=== PATIENT | female | born 1980 | race Caucasian/White ===

== ENCOUNTER 2016-09-12 16:15 | Emergency (ER) | payer MEDICAID ==
[~2016-09-12] VITALS: Ht 157.5 cm; Wt 71.2 kg
[~2016-09-12 16:15] MED LIST: CYMBALTA30 MG PO; DICLOFENAC 50MG50 MG PO; FLEXERIL10 MG PO; KEFLEX 500MG.500 MG PO; LODINE400 MG PO; NAPROXEN1 POW; NAPROXEN250 MG PO; NICODERM C21 MG/24 H TD; NOMEDS XX; PHENERGAN12.5 M3 PO; TYLENOL WITH CO1 TA1 PO; ZOFRAN4 MG PO
[2016-09-12] MEDS ORDERED: MOBIC15 MG PO (16:38)
[2016-09-12] MEDS ORDERED: LAMICTAL 100 M100 MG PO (16:38)
[2016-09-12] MEDS ORDERED: ZANAFLEX4 MG NG (16:38)
[2016-09-12] MEDS ORDERED: CYMBALTA60 M1 PO (16:39)
[2016-09-12] MEDS ORDERED: BUSPAR 10MG TAB10 MG PO (16:39)
[2016-09-12] MEDS ORDERED: MEDROL 4MG. DOSE4 MG PO (17:41)
--- NOTE | 2016-09-12 17:42 | Urgent Treatment Center Report ---
History of Present Issue Date/Time Seen by Provider 09/12/16 1700 Visit Reason Pt arrived:Walked Presenting Problem:PATIENT STATES HER RIGHT EAR HAS RICCARDO BOTHERING HER FOR 1 WEEK. PAIN AND STOPPED UP. SHE STATES SHE HAS SINUS DRAINAGE EARLY IN THE AM. BODY ACHES. Location if Accident: Onset of symptoms date/time:/ or onset unknown for:MEDICAL HX UNKNOWN Have you (or family members/close friends) recently traveled outside the [place]? N If Yes, where/when: Have you had exposure to infectious disease within the past month? TB? Other? Specify: c/o decreased hearing right ear x 2-3 weeks, rhinorrhea x 2-3 days, mild cough. URI 3-4 weeks ago "that I thought resolved". All symptoms worse in AM. Right ear pain barely, 2/10. Aching. Hasn't taken or tried anything for symptoms. No known sick contacts. Denies ear drainage, dizziness, headache. Source patient Exam Limitations no limitations ALLERGIES Coded Allergies: gabapentin (From NEURONTIN) (Mild, 03/03/16) bupropion (From WELLBUTRIN) (03/03/16) oxcarbazepine (From TRILEPTAL) (03/03/16) Home Medications Active Scripts ACETAMINOPHEN WITH CODEINE (Tylenol With Codeine #3 Tablet) 1 TAB PO Q4HP PRN pain #20 TAB Prov: 11/27/15 DICLOFENAC SODIUM (Diclofenac 50MG) 50 MG PO BID #60 TAB Prov: 11/27/15 Nicotine (Nicoderm Cq) 21 MG TD DAILY #30 PATCH Prov: 11/29/15 ONDANSETRON HCL (Zofran 4MG Tab) 4 MG PO Q8HP PRN NAUSEA AND VOMITING #20 TAB Prov: 11/29/15 CEPHALEXIN (Keflex 500MG Capsule) 500 MG PO BID 10 Days Ref 5 Prov: 12/10/15 Nicotine (Nicoderm Cq) 21 MG TD DAILY 30 Days Prov: 12/10/15 Reported Medications Naproxen (Naproxen 250MG Tablet) 250 MG PO PRN PRN NEEDED INFLAMMATION/PAIN DULOXETINE HCL (Cymbalta 30MG) 30 MG PO DAILY Lamotrigine (Lamictal 100Mg) 100 MG PO BID Meloxicam (Mobic 15MG) 15 MG PO BID TIZANIDINE HCL (Zanaflex) 4 MG NG Q8 Buspirone Hcl (Buspar 10MG) 10 MG PO DAILY DULOXETINE HCL (Cymbalta) 60 MG PO DAILY History Medical History General CAD? No Angina: No AL: No Hypertension? No Hyperlipidemia? No CHF? No DVT? No PE? No COPD? No Asthma? No Anemia? No GERD? No Gastric ulcers? No GI Bleed? No Hernia? No Thyroid Problems? No Hypothyroidism? No CVA? No Seizures? No Diabetes? No Renal Insuffiency? No UTI? No Stones? No GB Disease: No Nephritic Syndrome? No Asplenia? No Hepatitis? No Sickle Cell Disease? No Arthritis? No Migraines? No Cataracts? No Glaucoma? No MRSA? No HIV? No TB? No Anxiety? Yes Depression? No Cancer? No More? 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 Respiratory see HPI, denies shortness of breath, denies wheezing Cardiovascular denies no symptoms reported Skin denies rash Psychiatric/Neurological denies headache Physical Exam Vital Signs Vital Signs Date Time Temp Pulse Resp B/P Pulse O2 O2 Flow FiO2 Ox Delivery Rate 09/12 1634 98.7 89 18 120/80 98 General Appearance normal appearance, no apparent distress Eye Exam - bilateral eye normal exam Ear, Nose, Throat normal pharynx, normal EACs, normal left TM, right TM bulging, pearly duke, good light reflex, tender, clear fluid Neck supple, full range of motion, tender right side consistent w/ area of eustachian tube Respiratory Status No: respiratory distress. Lung Sounds anterior: lungs clear. posterior: lungs clear. bilateral: lungs clear. Cardiovascular regular rate/rhythm, no murmur Neurologic alert Skin normal color, warm/dry Lymphatic no adenopathy (cervical) Medical Decision Making LABS/Meds/Orders Pt receiving controlled substance in ED? No Departure Departure Time of Disposition 1738 Disposition DC Home or Self Care(routine) Clinical Impression Primary Impression: Acute serous otitis media, right ear Qualifiers: Recurrence: not specified as recurrent Qualified Code: H65.01 - Acute serous otitis media, right ear Condition STABLE Referrals Cynthia HURT,Scot Duggan (Family) Immediately for new or worsening symptoms or no noticeable improvement with steroids Patient Instructions DI for Eustachian Tube Dysfunction-Adult Additional Instructions Sleep elevated Reviewed side effects of steroids. Pt reports she is aware and has taken them before without difficulty or adverse reaction Discharge Counseling Counseled pt/family regarding diagnosis, test results, medications/RX, home care, follow up needs Prescriptions Current Visit Scripts Methylprednisolone (Medrol Dose Nikolay) 4 MG PO UD #1 NIKOLAY TAKE DIRECTED ON PACKAGING at 8819
[2016-09-12 17:51] VITALS: BP 120/80
[2016-10-03] MEDS ORDERED: ZOFRAN4 MG PO (14:22)
== END 2016-09-12 17:51 | disposition home or self-care (01) ==
LOC: UTC 16:15
DX: H65.01 Acute serous otitis media, right ear (principal); Z72.0 Tobacco use

== ENCOUNTER 2017-05-15 20:25 | Emergency (ER) | payer MEDICAID ==
[~2017-05-15] VITALS: Ht 157.5 cm; Wt 66.8 kg
[~2017-05-15 20:25] MED LIST changes: +BUSPAR 10MG TAB10 MG PO; +CYMBALTA60 M1 PO; +LAMICTAL 100 M100 MG PO; +MEDROL 4MG. DOSE4 MG PO; +MOBIC15 MG PO; +TRIAMCINOLON TP; +ZANAFLEX4 MG NG; +ZITHROMAX Z-PA250 M2 PO
--- OUTSIDE RECORDS SUMMARY | 2017-05-15 20:54 | External Medical Summary Rpt | CCD ---
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 LTY STDY 6 [facility] ANTIMICRB INC INC IAL MICRO/AGA R DILUTJ RADIOLOGI 52856 [place] C 6 MEDICAL EXAMINATI IMAGING ON CHEST ASS SINGLE VIEW FRONTAL PPSV23 75609 R[facility] JACKSON VACCINE 2 6 [facility] YRS OR INC INC OLDER FOR SUBQ/IM USE HOSPITAL G0378 [facility] JACKSON OBSERVATI 6 [facility] ON INC INC SERVICE PER HOUR LOCM Q9967 R[facility] JACKSON [phone] 6 [facility] MG/ML INC INC IODINE CONCENTRA TION PER ML OBSERVATI 68055 [facility] FRYMAN ON CARE 6 PHYSICIAN EUG DISCHARGE S GROUP MANAGEMEN T INJECTION J2405 [facility] JACKSON 6 [facility] ONDANSETR INC INC ON HCL PER 1 MG INJECTION J2405 [facility] JACKSON 6 [facility] ONDANSETR INC INC ON HCL PER 1 [facility] G0378 [facility] JACKSON OBSERVATI 6 [facility] ON INC INC SERVICE PER HOUR COMPREHEN 49205 R[facility] JACKSON SIVE 6 [facility] METABOLIC INC INC PANEL INITIAL 87738 [facility] MAEVE OBSERVATI 6 PHYSICIAN LOU ON S GROUP CARE/DAY [address] [place] [address] [facility]DA ALL ABDOMEN & 6 MEDICAL PELVIS IMAGING W/CONTRAS ASS T MATERIAL RADEX ABD 52859 [place] VYINEKE COMPL 6 MEDICAL AQT ABD IMAGING W/S/E/D ASS VIEWS 1 VIEW BLOOD 56016 [facility] JACKSON COUNT 6 [facility] COMPLETE INC INC AUTO&AUTO DIFRNTL WBC THERAPEUT 12154 R[facility] JACKSON IC 6 [facility] INJECTION INC [place] [address] RENETTA JACKSON MAGNESIUM 6 [place] [address] RENETTA JACKSON LIPASE 6 [facility] INC INC RADEX 61697 MARISA BANDA ALL SHOULDER 6 MEDICAL 1 VIEW IMAGING ASS ECG 09523 RENETTA BEE JR ROUTINE 6 [facility] W/LEAST P 12 LDS I&R ONLY SHOULDER L3650 [facility] ORTHOSIS 6 TECHNOLOG TECHNOLOG FIG 8 IES INC IES INC ABDUCT RESTRAINE R PREFAB COMPUTER- 46234 [place] JORGE ALBERTO AIDED 6 MEDICAL ANDRES DETECTION IMAGING ASS SCREENING MAMMOGRAP HY SCREENING G0202 [place] JORGE ALBERTO 6 MEDICAL ANDRES MAMMOGRAP IMAGING HY RENE ASS INCL CAD WHEN PERFORMD COMPREHEN 32068 R[facility]TA JACKSON SIVE 6 [facility] [address] RENETTA RENETTA FREE 6 [facility] [place] [address] RENETTA JACKSON THYROID 6 [facility] STIMULATI INC INC NG HORMONE TSH 25 54960 R[facility]TA JACKSON HYDROXY 6 [facility] INCLUDES INC INC FRACTIONS IF PERFORMED LIPID 17033 RENETTA JACKSON PANEL 6 [facility] INC INC BLOOD 69799 RENETTA JACKSON COUNT 6 [facility] COMPLETE INC INC AUTO&AUTO DIFRNTL WBC RADEX 76053 [place] ALL SPINE 6 MEDICAL CERVICAL IMAGING 2 OR 3 ASS VIEWS RADEX 90074 [place] ALL SPINE 6 MEDICAL THORACIC IMAGING 2 VIEWS ASS RADEX 15230 [place] ALL SPINE 6 MEDICAL LUMBOSACR IMAGING AL 2/3 [place] [address] PATHOLOGY PATHOLOGY SURG 8 & & PATHOLOGY CYTOLOGY CYTOLOGY LAB LAB GROSS&LOU ROSCOPIC EXAM COLPOSCOP 72689 WOMENS EITAN, Y CERVIX 8 [facility] ENDOCRV CURRETAGE LAPAROSCO 43641 LATTER-DAY LATTER-DAY PY W/PLMT 8 PHYS SURG PHYS SURG CTR CTR OCCLUSION DEVICE OVIDUCTS ANES IPER 43975 [facility] HICKEY, LWR ABD 8 [place] JUAN MANUEL A W/LAPS ANESTHESI TUBAL A PSC LIGATION/ TRANSECT CYTP 45928 PATHOLOGY PATHOLOGY CERVICAL/ 8 & & VAGINAL CYTOLOGY CYTOLOGY REQ LAB LAB INTERP PHYSICIAN CYTP C/V 57268 PATHOLOGY PATHOLOGY AUTO THIN 8 & & LYR CYTOLOGY CYTOLOGY PREPJ SCR LAB LAB MNL RESCR PHYS GONADOTRO 13003 [facility] PIN 8 [facility] QUANTITAT LASHAUN BLOOD 61418 [facility] COUNT 8 LATTER-DAY LATTER-DAY COMPLETE HOSP HOSP AUTOMATED COLLECTIO 01070 [facility] N VENOUS 8 LATTER-DAY LATTER-DAY BLOOD HOSP HOSP VENIPUNCT URE INITIAL 42249 [facility] Y Y ON HOSPITAL HOSPITAL CARE/DAY 30 MINUTES URNLS DIP 03205 [facility] 8 Y Y STICK/TAB HOSPITAL HOSPITAL LET RGNT AUTO W/O MICROSCOP Y BLOOD 82543 [facility] COUNT [address] [place] [address] [place] GI[place], HEAD/BRAI 8 MEDICAL SERENITY A N W/O SERV CONTRAST FOUNDATIO MATERIAL NONINVASI 61101 [facility] VE 8 Y Y EAR/PULSE [facility] OXIMETRY SINGLE DETER BASIC 58367 [facility] METABOLIC [address] [facility] CALCIUM TOTAL COLLECTIO 03000 [facility] N VENOUS 8 Y Y BLOOD HOSPITAL HOSPITAL VENIPUNCT URE OTHER 7309 [facility] ARTIFICIA 8 LATTER-DAY LATTER-DAY L RUPTURE HOSP [facility] OTHER 7359 C[facility] MANUALLY 8 LATTER-DAY LATTER-DAY ASSISTED HOSP HOSP DELIVERY NEURAXIAL 85129 LATTER-DAY NITHYA, LABOR 8 ANESTHESI ONIEL ANALG/ANE A PSC A S PLND VAGINAL DELIVERY 86498 [facility] NONSTRESS 8 LATTER-DAY LATTER-DAY TEST HOSP HOSP URNLS DIP 10933 [facility] 8 LATTER-DAY LATTER-DAY STICK/TAB HOSP HOSP LET REAGENT AUTO MICROSCOP Y IADNA 58657 MEDICAL MEDICAL STREPTOCO 8 DIAGNOSTI DIAGNOSTI CCUS [facility] LAB [facility] C LAB LLC [place] [address] [facility] INFLUENZA 8 LATTER-DAY LATTER-DAY A/B EACH HOSP HOSP IAADIADOO 61791 [facility] 8 LATTER-DAY LATTER-DAY STREPTOCO HOSP HOSP CCUS GROUP A CUL 77906 [facility] PRSMPTV 8 LATTER-DAY LATTER-DAY PTHGNC HOSP HOSP ORGANISM SCRN W/COLONY ESTIMJ BLOOD 85317 [facility] COUNT 8 LATTER-DAY LATTER-DAY COMPLETE HOSP HOSP AUTOMATED COLLECTIO 66666 [facility]TRAL N VENOUS 8 LATTER-DAY LATTER-DAY BLOOD HOS[place] [address] CENTRAL CENTRAL INFLUENZA 8 LATTER-DAY LATTER-DAY A/B EACH HOSP HOSP GONADOTRO 82552 [facility] PIN 8 LATTER-DAY [facility] HOSP QUANTITAT LASHAUN ALPHA-FET 46743 [facility] OPROTEIN 8 LATTER-DAY [place] [address] [facility] ESTRIOL 8 [facility]TER-DAY [facility] HOSP [place] PREG 30409 KELY, UTERUS 8 JUAN R W/DETAIL DIAGNOSTI A CCENTER ELIECER 1ST GESTATION INHIBIN A 63699 [facility]AL 8 LATTER-DAY [facility]TER-DAY HOSP HOSP COLLECTIO 97441 CENTRAL CENTRAL N VENOUS 8 LATTER-DAY LATTER-DAY BLOOD HOSP HOSP VENIPUNCT URE 68159 CENTRAL [facility]ENTRAL NONSTRESS 7 LATTER-DAY LATTER-DAY TEST HOSP HOSP Encounters Encounter Start End Date Code Location Performer Type Date OFFICE 71955 [facility] PARVIZ MASSEY 7 7 PHYSICIAN T VISIT S GROUP 25 MINUTES HOSPITAL [facility] - 7 7 [facility] - 7 7 [facility] OUTPATIEN [facility] T OFFICE 34581 RENETTA MASSEY 7 7 [facility] T [facility]ISIT 5 INC MINUTES HOSPITAL RENETTA - 7 7 [facility] OUTPATIEN [facility] EMERGENCY 46414 Raffi ORTA 7 PHYSICIAN JR [facility] T VISIT LOW/MODER SEVERITY EMERGENCY 60308 RENETTA 7 7 [facility] T VISIT MODERATE SEVERITY HOSPITAL RENETTA - 7 7 [facility] OUTPATIEN [facility] T OFFICE 26731 RENETTA OUTPATIEN 7 7 [facility] T VISIT 5 INC MINUTES HOSPITAL RENETTA - 7 7 [facility] OUTPATIEN INC T HOSPITAL RENETTA - 7 7 [facility] OUTPATIEN INC T OFFICE 76739 ERNETTA OUTPATIEN 7 7 [facility] T VISIT 5 INC MINUTES HOSPITAL RENETTA - 6 6 [facility] OUTPATIEN INC HOSPITAL RENETTA - 6 6 [facility] OUTPATIEN INC T OFFICE 90599 [facility] TRELL OUTPATIEN 6 6 PHYSICIAN COLT T NEW 45 S GROUP MINUTES OFFICE 71849 [facility] REGGIE OUTPATIEN 6 6 PHYSICIAN STONE T VISIT S GROUP PA-C [place] 25 MINUTES EMERGENCY [address] [facility] DEPT 6 6 PHYSICIAN VISIT S, PLLC HIGH SEVERITY& THREAT FUNCJ EMERGENCY 27383 R[facility]ETTA 6 6 [facility] DEPARTMEN INC T VISIT HIGH/URGE NT SEVERITY HOSPITAL RENETTA - 6 6 [facility] OUTPATIEN INC T OFFICE 14013 [facility] REGGIE OUTPATIEN 6 6 PHYSICIAN STONE T VISIT S GROUP PA-C [place] 25 MINUTES EMERGENCY 93385 R[facility]ETTA 6 6 [facility] DEPARTMEN INC T VISIT HIGH/URGE NT SEVERITY EMERGENCY [address] [facility] DEPT 6 6 PHYSICIAN VISIT S, PLLC HIGH SEVERITY& THREAT FUNCJ HOSPITAL RENETTA - 6 6 [facility] OUTPATIEN INC T EMERGENCY 69789 LUCIAN [place] 6 6 PHYSICIAN JR GAMINO DEPARTMEN S, PLLC T VISIT HIGH/URGE NT SEVERITY OFFICE 30341 [facility] DALIA OUTCEE 6 6 PHYSICIAN KIM T NEW 20 S GROUP MINUTES OFFICE 63857 [facility] [address] T VISIT S GROUP 25 MINUTES HOSPITAL RENETTA - 6 6 [facility] OFF[facility] 72307 [facility] OUTPSYCHIATRICEN 6 6 PHYS[address] LOU T VISIT S GROUP 25 MINUTES OFFICE 30952 [facility] [address] T NEW 30 S GROUP MINUTES HOSPITAL CENTRAL - 8 8 LATTER-DAY OUTPATIEN HOSP T OFFICE 22877 SHILPA SEAMAN 8 8 [facility] 15 PLLC MINUTES OFFICE 54132 [facility] 8 8 ERICEMMA COURTNEY T VISIT ON CLINIC 25 MINUTES EMERGENCY 92906 QUOC JOLLY, 8 8 MEDICAL JAZLYN Smith [facility] VISIT FOUNDATIO HIGH/URGE NT [facility] UNIVERSIT - [address] [facility] - 8 8 LATTER-DAY INPATIENT HOSP HOSPITAL [facility]TRAL - 8 8 LATTER-DAY OUTPATIEN HOSP T OFFICE 81498 SHILPA SEAMAN 8 8 [facility] 15 PLLC MINUTES [facility] CENTRAL - 8 8 LATTER-DAY OUTPATIEN HOSP T OFFICE 90910 JULIAN SEAMANPATIEN 8 8 [facility] 15 PLLC MINUTES OFFICE 18569 SHAWNEE LAIRD JULIANPATIEN 8 8 [facility] 15 PLLC MINUTES OFFICE 27226 SHAWNEE LAIRD JULIANPATIEN 8 8 [facility] 15 PLLC MINUTES HOSPITAL [facility]AL - 8 8 LATTER-DAY OUTPATIEN HOSP T EMERGENCY 23712 [facility], 8 8 EMERGENCY KEILA Blake DEPARTMEN PHYS PSC T VISIT MODERATE SEVERITY OFFICE 74831 SHAWNEE LAIRD JULIANPATIEN 8 8 [facility] 15 PLLC MINUTES OFFICE 39681 SHAWNEE LAIRD OUTPATIEN 8 8 [facility] 15 PLLC MINUTES HOSPITAL C[facility]AL - 8 8 LATTER-DAY OUTPATIEN HOSP T OFFICE 35568 JULIAN SEAMANPATIEN 8 8 [facility] 15 PLL MINUTES EMERGENCY 38777 [facility]AL DUNC[place], 8 8 EMERGENCY ANTHONY Solis DEPARTMEN PHYS PSC T VISIT MODERATE SEVERITY HOSPITAL [facility] - 8 8 LATTER-DAY OUTPATIEN HOSP T EMERGENCY 49923 [place] 8 8 LATTER-DAY DEPARTMEN HOSP T VISIT LOW/MODER SEVERITY OFFICE 51684 SHAWNEE LAIRDSHILPA 8 8 [facility] - 8 8 LATTER-DAY OUTPATIEN HOSP T OFFICE 43888 BABAK EDGE 8 8 JUAN R ION DIAGNOSTI A NEW/ESTAB CCENTER PATIENT 15 MIN HOSPITAL CENTRAL - 7 7 LATTER-DAY OUTPATIEN HOSP T
--- OUTSIDE RECORDS SUMMARY | 2017-05-15 20:54 | External Medical Summary Rpt | CCD ---
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 INFLUENZA 8 [facility] MANDAEISM A/B EACH HOSP HOSP GONADOTRO 96605 [facility] PIN 8 [facility] H[facility]P QUANTITAT LASHAUN ALPHA-FET 28389 [facility] OPROTEIN 8 [facility] [address] [facility] ESTRIOL 8 [facility] HOSP [place]OSP [place] PREG 05838 KELY, UTERUS 8 JUAN R W/DETAIL DIAGNOSTI A CCENTER ELIECER 1ST GESTATION INHIBIN A 45050 [facility] 8 [facility]ISM HOSP HOSP COLLECTIO 32050 CEN[facility] N VENOUS 8 [facility]ISM BLOOD HOSP HOSP VENIPUNCT URE 46831 [facility] NONSTRESS 7 [facility]DA[facility] TEST HOSP HOSP Encounters Encounter Start End Date Code Location Performer Type Date OFFICE 22115 [facility] PARVIZ MASSEY 7 7 PHYSICIAN T VISIT S GROUP 25 MINUTES [facility]OSPITAL [facility] [address] [facility] OUTPATIEN CR[facility]ICAL ACCESS H[facility]PITAL H[facility] [address] [facility] OUTPATIEN [facility] T OFFICE 33185 [facility] MASSEY [address] [facility] T VISIT 5 INC MINUTES HOSPITAL [facility] - [address] [facility] OUTPATIEN CRITICAL ACCESS HOSPITAL EMERGENCY 20076 Raffi ORTA [address] [facility] T VISIT LOW/MODER SEVERITY EMERGENCY 20951 [facility] [address] [facility] T VISIT MODERATE SEVERITY HOSPITAL [facility] - 7 7 [facility] OUTPATIEN [facility] T OFFICE 40884 [facility] OUTPATIEN 7 7 [facility] T VISIT 5 INC MINUTES [facility]OSPITAL [facility] - 7 7 [facility] OUTPATIEN INC T HOSPITAL [facility] - 7 7 [facility] OUTPATIEN INC T OFFICE 06789 [facility] OUTPATIEN 7 7 [facility] T VISIT 5 INC MINUTES [facility]OSPITAL [facility] - 6 6 [facility] OUTPATIEN INC [facility]PITAL [facility] - 6 6 [facility] OUTPATIEN INC T OFFICE 65083 [facility] TRELL OUTPATIEN 6 6 PHYSICIAN COLT T NEW 45 S GROUP MINUTES OFFICE 35660 [facility] REGGIE OUTPATIEN 6 6 PHYSICIAN STONE T VISIT S GROUP PA-C [place] 25 MINUTES EMERGENCY 68489 [facility] DEPT 6 6 PHYSICIAN VISIT S, PLLC HIGH SEVERITY& THREAT FUNCJ EMERGENCY 95433 [facility] 6 6 [facility] DEPARTMEN INC T VISIT HIGH/URGE NT SEVERITY HOSPITAL [facility] - 6 6 [facility] OUTPATIEN INC T OFFICE 66423 [facility] REGGIE OUTPATIEN 6 6 PHYSICIAN STONE T VISIT S GROUP PA-C [place] 25 MINUTES EMERGENCY 01181 [facility] 6 6 [facility] DEPARTMEN INC T VISIT HIGH/URGE NT SEVERITY EMERGENCY 07253 [facility] DEPT 6 6 PHYSICIAN VISIT S, PLLC HIGH SEVERITY& THREAT FUNCJ HOSPITAL [facility] - 6 6 [facility] OUTPATIEN INC T EMERGENCY 69049 LUCIAN [place] 6 6 PHYSICIAN JR GAMINO DEPARTMEN S, PLLC T VISIT HIGH/URGE NT SEVERITY OFFICE 35911 [facility] DALIA OUTECE 6 6 PHYSICIAN KIM T NEW 20 S GROUP MINUTES OFFICE 78125 [facility] [address] T VISIT S GROUP 25 MINUTES HOSPITAL [facility] - 6 6 [facility] 27673 [facility] [address] T VISIT S GROUP 25 MINUTES OFFICE 55066 [facility] [address] T NEW 30 S GROUP MINUTES HOSPITAL [facility] - 8 8 [facility] OUTPATIEN HOSP T OFFICE 75537 SHILPA SEAMAN 8 8 [facility] 15 PLLC MINUTES OFFICE 99856 [facility] 8 8 ERICEMMA COURTNEY T VISIT ON CLINIC 25 MINUTES EMERGENCY 65843 QUOC JOLLY, 8 8 MEDICAL JAZLYN Smith [facility] T VISIT FOUNDATIO HIGH/URGE NT [facility] UN[facility]ERSIT - [facility] 8 [facility] INPATIENT [facility] HOSPITAL C[facility]AL - 8 8 [facility] OUTPATIEN HOSP T OFFICE 67623 SHILPA SEAMAN 8 8 [facility] VISIT CENTER 15 PLLC MINUTES [facility] CENTRAL - 8 8 [facility] OUTPATIEN HOSP T OFFICE 92646 JULIAN SEAMANPATIEN 8 8 [facility] 15 PLLC MINUTES OFFICE 60321 SHAWNEE LAIRD JULIANPATIEN 8 8 [facility] 15 PLLC MINUTES OFFICE 74209 SHAWNEE LAIRD JULIANPATIEN 8 8 [facility] 15 PLLC MINUTES HOSPITAL [facility] - 8 8 [facility] OUTPATIEN HOSP T EMERGENCY 71100 [facility], 8 8 EMERGENCY KEILA Blake DEPARTMEN PHYS PSC T VISIT MODERATE SEVERITY OFFICE 97869 SHAWNEE LAIRD JULIANPATIEN 8 8 [facility] 15 PLLC MINUTES OFFICE 22009 SHAWNEE LAIRD OUTPATIEN 8 8 [facility] 15 PLLC MINUTES HOSPITAL [facility] - 8 8 [facility] OUTPATIEN HOSP T OFFICE 23265 JULIAN SEAMANPATIEN 8 8 [facility] 15 PLL MINUTES EMERGENCY 05732 [facility] [place], 8 8 EMERGENCY ANHTONY Solis DEPARTMEN PHYS PSC T VISIT MODERATE SEVERITY HOSPITAL [facility] - 8 8 [facility] OUTPATIEN HOSP T EMERGENCY 18114 [place] 8 8 [facility] DEPARTMEN HOSP T VISIT LOW/MODER SEVERITY OFFICE 90007 SHAWNEE LAIRDSHILPA 8 8 [facility] 8 [facility] OUTPATIEN HOSP T OFFICE 75018 BABAK EDGE 8 8 JUAN R ION DIAGNOSTI A NEW/ESTAB CCENTER PATIENT 15 MIN HOSPITAL [facility]AL - 7 7 [facility] OUTPATIEN HOSP T
--- OUTSIDE RECORDS SUMMARY | 2017-05-15 20:59 | External Medical Summary Rpt | CCD ---
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 LIGATION/ TRANSECT GONADOTRO 66452 [facility] PIN 8 SPIR[facility]ISM SPIR[facility]ISM [facility] HOSP QUANTITAT LASHAUN CYTP 14489 PATHOLOGY PATHOLOGY CERVICAL/ 8 & & VAGINAL CYTOLOGY CYTOLOGY REQ LAB LAB INTERP PHYSICIAN CYTP C/V 82256 PATHOLOGY PATHOLOGY AUTO THIN 8 & & LYR CYTOLOGY CYTOLOGY PREPJ SCR LAB LAB MNL RESCR PHYS BLOOD 28021 [facility] COUNT 8 SPIRITISM SPIRITISM COMPLETE HOSP HOSP AUTOMATED COLLECTIO 09030 [facility] N VENOUS 8 SPIRITISM SPIRITISM BLOOD HOSP HOSP VENIPUNCT URE INITIAL 76382 [facility] OBSERVATI 8 Y Y ON HOSPITAL HOSPITAL CARE/DAY 30 MINUTES BLOOD 84266 [facility] COUNT 8 Y Y COMPLETE HOSPITAL HOSPITAL AUTOMATED URNLS DIP 14227 [facility] UNIVERSIT 8 Y Y STICK/TAB HOSPITAL HOSPITAL LET RGNT AUTO W/[place] [address] QU[facility] ADAIR, HEAD/BRAI 8 MEDICAL SERENITY A N W/O SERV CONTRAST FOUNDATIO MATERIAL COLLECTIO 34451 [facility] N VENOUS 8 Y Y BLOOD [facility] HOSPITAL VENIPUNCT URE BASIC 76966 [facility] METABOLIC 8 Y Y PANEL [facility] CALCIUM TOTAL NONINVASI 66015 [facility] VE 8 Y Y EAR/PULSE [facility] OXIMETRY SINGLE DETER OTHER 7359 [facility] MANUALLY 8 SPIRITISM SPIRITISM ASSISTED HOSP HOSP DELIVERY OTHER 7309 [facility] ARTIFICIA 8 SPIRITISM SPIRITISM L RUPTURE [facility] NEURAXIAL 84100 SPIRITISM NITHYA, LABOR 8 ANESTHESI ONIEL ANALG/ANE A PSC A S PLND VAGINAL DELIVERY 50201 [facility] NONSTRESS 8 SPIRITISM SPIRITISM TEST HOSP HOSP URNLS DIP 19787 [facility]EN[facility]AL 8 SPIRITISM SPIRITISM STICK/TAB HOSP HOSP LET REAGENT AUTO MICROSCOP Y IADNA 26107 MEDICAL MEDICAL STREPTOCO 8 DIAGNOSTI DIAGNOSTI [facility] GROUP [place]PL[place] [address] [facility] INFLUENZA 8 SPIRITISM SPIRITISM A/B EACH HOSP HOSP IAADIADOO 96408 [facility] CENTRAL 8 SPIRITISM SPIRITISM STREPTOCO HOSP HOSP CCUS GROUP A CUL 30034 [facility] PRSMPTV 8 SPIRITISM SPIRITISM PTHGNC HOSP HOSP ORGANISM SCRN W/COLONY ESTIMJ BLOOD 01534 [facility] COUNT 8 SPIRITISM SPIRITISM COMPLETE HOSP HOSP AUTOMATED COLLECTIO 28635 [facility]ENTRAL N VENOUS 8 SPIRITISM SPIRITISM [place]LOOD [place] [address] [facility]TR[facility] INFLUENZA 8 SPIRITISM SPIRITISM A/[place] [address] [facility] ESTRIOL 8 SPIRITISM SPIRITISM HOSP HOSP INHIBIN A 34519 CEN[facility]AL CENTRAL 8 SPIRITISM SPIRITISM HOSP HOSP [place] PREG 11248 CEN[facility] UTERUS 8 SPIRITISM SPIRITISM W/DETAIL HOSP HOSP ELIECER 1ST GESTATION COLLECTIO 02769 CENTRAL CENTRAL N VENOUS 8 SPIRITISM SPIRITISM BLOOD HOSP HOSP VENIPUNCT URE ALPHA-FET 56276 [facility]EN[facility]AL [facility]ENTRAL OPROTEIN 8 SPIRITISM SPIRITISM SERUM HOSP HOSP GONADOTRO 64295 CEN[facility]AL [facility]ENTRAL PIN 8 SPIRITISM SPIRITISM CHORIONIC HOSP HOSP QUANTITAT LASHAUN 59127 CEN[facility]AL CENTRAL NONSTRESS 7 SPIRITISM SPIRITISM TEST HOSP HOSP Encounters Encounter Start End Date Code Location Performer Type Date OFFICE 78067 [facility] STONE OUTPATIEN 7 7 PHYSICIAN T VISIT S GROUP 25 MINUTES [facility] [address] [facility] [address] [facility] T OFFICE 13994 [facility] OUTPATIEN [address] [facility] T [facility]ISIT 5 INC MINUTES [facility]OSPITAL [facility] [address] [facility] OUTPATIEN [facility] EMERGENCY [address] [facility] [address] [facility] T VISIT MODERATE [facility]VERITY [facility]OSPITAL [facility] [address] [facility]IEN [facility] EMERGENCY 84212 LUCIAN LANGFORD [address] [facility] S, [facility] T VISIT LOW/MODER SEVERITY [facility]OSPITAL [facility] [address] [facility]EN [facility] T OFFICE 98488 [facility] OUTPATIEN 7 7 [facility] T VISIT 5 INC MINUTES OFFICE 15455 [facility] OUTPATIEN 7 7 [facility] T VISIT 5 INC MINUTES [facility]OSPITAL [facility] - [address] [facility] - [address] [facility] [address] [facility]EN [facility] T OFFICE 91753 [facility] CAI OUTPATIEN 6 6 PHYSICIAN COLT T NEW 45 S GROUP MINUTES OFFICE 02516 [facility] PAREDES OUTPATIEN 6 6 PHYSICIAN STONE T VISIT S GROUP SADIA MAURO 25 MINUTES HOSPITAL [facility] - 6 6 [facility] OUTPATIEN INC T EMERGENCY 17403 [facility] 6 6 [facility] DEPARTMEN INC T VISIT HIGH/URGE NT SEVERITY EMERGENCY 71314 LUCIAN CAREY [facility] [place] DEPT 6 6 PHYSICIAN VISIT S, [facility] HIGH SEVERITY& THREAT FUNJ OFFICE 68811 [facility] PAREDES OUTPATIEN 6 6 PHYSICIAN STONE T VISIT S GROUP SADIA MAURO 25 MINUTES EMERGENCY [address] [facility] [address] [facility] DEPARTMEN INC T VISIT HIGH/URGE NT SEVERITY EMERGENCY 71637 LUCIAN CAREY [facility] [place] DEPT 6 6 PHYSICIAN VISIT S, [facility] HIGH SEVERITY& THREAT [facility] RENETTA - 6 6 [facility] OUTPATIEN INC T EMERGENCY 46086 LUCIAN LANGFORD, 6 6 PHYSICIAN [facility] S, [facility] T VISIT HIGH/URGE NT SEVERITY OFFICE 34117 [facility] GÓMEZ OUTPATIEN 6 6 PHYSICIAN KIM T NEW 20 S GROUP MINUTES HOSPITAL [facility] - 6 6 [facility] OUTPATIEN INC T OFFICE 45142 [facility] MAEVE OUTPATIEN 6 [address] PHYS[address] T VISIT S GROUP 25 MINUTES OFFICE 29695 [facility] MAEVE OUTPATIEN 6 [address] PH[address] T VISIT S GROUP 25 MINUTES OFFICE 00375 [facility] MAEVE OUTPATIEN 6 6 PHYSIC[address] L[address] T NEW 30 S GROUP MINUTES OFFICE 41445 SHILPA SEAMAN 8 8 [facility] 15 PLLC MINUTES HOSPITAL CENTRAL - 8 8 SPIRITISM OUTPATIEN HOSP T EMERGENCY 91400 [facility] 8 8 Y [facility] T VISIT HIGH/URGE NT SEVERITY OFFICE 56924 [facility] ELVIS OUTPATIEN 8 8 NAIMA COURTNEY T VISIT ON CLINIC 25 MINUTES HOSPITAL [facility] - 8 8 SPIRITISM INPATIENT HOSP HOSPITAL CENTRAL - 8 8 SPIRITISM OUTPATIEN HOSP T OFFICE 75719 [facility] SHILPA LAIRD 8 8 [facility] C[facility]TRAL - 8 8 SPIRITISM OUTPATIEN HOSP T OFFICE 12302 [facility] SHILPA LAIRD 8 8 [facility] 15 PLL MINUTES OFFICE 72444 [facility] SHILPA LAIRD 8 8 [facility] 15 PLL MINUTES OFFICE 34938 SHAWNEE CALDWELLSHILPA LITTLE 8 8 [facility] 15 PLLC MINUTES HOSPITAL CENTRAL - 8 8 SPIRITISM OUTPATIEN HOSP T EMERGENCY 00139 CENTRAL 8 8 SPIRITISM [facility] HOSP T VISIT MODERATE SEVERITY OFFICE 17152 [facility] SHILPA LAIRD 8 8 [facility] 15 PLLC MINUTES HOSPITAL CENTRAL - 8 8 SPIRITISM OUTPATIEN HOSP T OFFICE 48714 [facility] CALDWELLSHILPA LITTLE 8 8 [facility] 15 PLL MINUTES OFFICE 49692 [facility] SHILPA LAIRD 8 8 [facility] 15 PLL MINUTES EMERGENCY 78404 CENTRAL 8 8 SPIRITISM [facility] HOSP T VISIT LOW/MODER SEVERITY HOSPITAL CENTRAL - 8 8 SPIRITISM OUTPATIEN HOSP T EMERGENCY 59284 [facility], 8 8 EMERGENCY [facility] PSC T VISIT MODERATE SEVERITY HOSPITAL CENTRAL - 8 8 SPIRITISM OUTPATIEN HOSP T OFFICE 40444 BABAK EDGE 8 8 JUAN R ALIS DIAGNOSTI A NEW/ESTAB CCENTER PATIENT 15 MIN OFFICE 40399 SHILPA SEAMAN 8 8 [facility] 15 PLLC MINUTES [facility] WEIMAR - 7 7 SPIRITISM OUTPATIEN HOSP T
--- OUTSIDE RECORDS SUMMARY | 2017-05-15 20:59 | External Medical Summary Rpt | CCD ---
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 GROUP MINUTES OFFICE 41678 [facility] PAREDES OUTPATIEN 6 6 PHYSICIAN STONE T VISIT S GROUP SADIA MAURO 25 MINUTES HOSPITAL [facility] - 6 6 [facility] OUTPATIEN INC T EMERGENCY 03396 [facility] 6 6 [facility] DEPARTMEN INC T VISIT HIGH/URGE NT SEVERITY EMERGENCY 01211 LUCIAN CAREY [facility] DEPT 6 6 PHYSICIAN VISIT S, [facility] HIGH SEVERITY& THREAT FUNJ OFFICE 94951 [facility] PAREDES OUTPATIEN 6 6 PHYSICIAN STONE T VISIT S GROUP SADIA MAURO 25 MINUTES EMERGENCY 82943 [facility] 6 6 [facility] DEPARTMEN INC T VISIT HIGH/URGE NT SEVERITY EMERGENCY 06574 LUCIAN CRAEY [facility] DEPT 6 6 PHYSICIAN VISIT S, [facility] HIGH SEVERITY& THREAT [facility]PITAL RENETTA - 6 6 MEM HOSP OUTPATIEN INC T EMERGENCY 42099 LUCIAN LANGFORD, [address] [facility] S, [facility] T VISIT HIGH/URGE NT SEVERITY OFFICE 50920 [facility] GÓMEZ OUTPATIEN 6 6 PHYSICIAN KIM T NEW 20 S GROUP MINUTES HOSPITAL R[facility] - 6 6 MEM HOSP OUTPATIEN INC T OFFICE 41767 [facility] MAEVE OUTPATIEN 6 6 PHYSICIAN LOU T VISIT S GROUP 25 MINUTES OFFICE 41340 [facility] MAEVE OUTPATIEN 6 6 PHYSICIAN LOU T VISIT S GROUP 25 MINUTES OFFICE 15650 [facility] MAEVE OUTPATIEN 6 6 PHYSICIAN LOU T NEW 30 S GROUP MINUTES OFFICE 24513 SHILPA SEAMAN 8 8 [facility] 15 PLLC MINUTES HOSPITAL [facility]TRAL - 8 8 RELIGION OUTPATIEN HOSP T EMERGENCY 41114 UN[facility]IT 8 8 Y [facility] HOSPITAL T VISIT HIGH/URGE NT SEVERITY OFFICE 95142 [facility] ELVIS OUTPATIEN 8 8 NAIMA COURTNEY T VISIT ON CLINIC 25 MINUTES HOSPITAL [facility] - 8 8 [facility] INPATIENT HOSP HOSPITAL [facility] - 8 8 RELIGION OUTPATIEN HOSP T OFFICE 36545 SHAWNEE SHILPA LAIRD 8 8 [facility] RELIGION OUTPATIEN HOSP T OFFICE 70113 SH[facility] SHILPA LAIRD 8 8 [facility] 15 PLL MINUTES OFFICE 95140 [facility] SHILPA LAIRD 8 8 [facility] 15 PLL MINUTES OFFICE 57150 SHAWNEE CALDWELLSHILPA LITTLE 8 8 [facility] 15 PLLC MINUTES HOSPITAL CENTRAL - 8 8 RELIGION OUTPATIEN HOSP T EMERGENCY 19612 [facility]AL 8 8 RELIGION [facility] HOSP T VISIT MODERATE SEVERITY OFFICE 48009 [facility] SHILPA LAIRD 8 8 [facility] 15 PLLC MINUTES HOSPITAL CENTRAL - 8 8 RELIGION OUTPATIEN HOSP T OFFICE 09079 SHAWNEE CALDEWLLSHILPA LITTLE 8 8 [facility] 15 PLL MINUTES OFFICE 06829 [facility] SHILPA LAIRD 8 8 [facility] 15 PLL MINUTES EMERGENCY 43852 [facility]AL 8 8 RELIGION [facility] HOSP T VISIT LOW/MODER SEVERITY HOSPITAL CENTRAL - 8 8 RELIGION OUTPATIEN HOSP T EMERGENCY 82914 [facility], 8 8 EMERGENCY [facility] T VISIT MODERATE SEVERITY HOSPITAL C[facility]TRAL - 8 8 RELIGION OUTPATIEN HOSP T OFFICE 99046 BABAK EDGE 8 8 JUAN R ALIS DIAGNOSTI A NEW/ESTAB CCENTER PATIENT 15 MIN OFFICE 78839 SHILPA SEAMAN 8 8 [facility] 15 PLLC MINUTES [facility] - 7 7 RELIGION OUTPATIEN HOSP T
--- OUTSIDE RECORDS SUMMARY | 2017-05-15 21:00 | External Medical Summary Rpt | CCD ---
Demographics Preferred Language Faroese Marital Status Unknown Taoist Affiliation Unknown Race Unknown Ethnic Group Unknown Author Author , LUIS A GUNN Address Unknown Phone luis Immunization No patient found.
--- OUTSIDE RECORDS SUMMARY | 2017-05-15 21:00 | External Medical Summary Rpt ---
Author Author LUIS A Colon, LUIS A Production Organization [employer] Address Unknown Phone Unavailable Results Streptococcus pyogenes Ag [Presence] in Unspecified specimen Observa Value Referen Units Interpr Notes Date tion ce etation Range Strepto NOT NOTDETE No No LOT # Feb 24 coccus DETECTE CTED informa informa N/A EXP 2016 pyogene D tion in tion in DATE 1:47 PM s Ag source source N/A [Presen data data ce] in Unspeci fied specime n
--- OUTSIDE RECORDS SUMMARY | 2017-05-15 21:00 | External Medical Summary Rpt | CCD ---
Demographics Preferred Language Irish Marital Status Unknown Lutheran Affiliation Unknown Race Unknown Ethnic Group Unknown Author Author , LUIS A GUNN Address Unknown Phone ulis Immunization No patient found.
[2017-05-15 21:31] LABS: URINE BILIRUBIN - DIPSTICK NEGATIVE (NEG); URINE BLOOD NEGATIVE (NEG)
[2017-05-15 21:40] LABS: AMPHETAMINES/METAMPHETAMINES NEGATIVE ng/mL (<1000)
[2017-05-15] MEDS ORDERED: ETODOLAC200 MG PO (21:49)
[2017-05-15] MEDS ORDERED: FLEXERIL10 MG PO (21:49)
--- NOTE | 2017-05-15 21:49 | Emergency Room Report ---
History of Present Illness Time Seen by MD [id number] Presenting Problem in Triage Pt arrived:Walked Presenting Problem:PAIN IN RIGHT HIP, BUTTOCK RADIATED DOWN RIGHT LEG, STARTED YESTERDAY, AND HAS WORSENED TODAY. 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 N Clinical Suspician of Infection? N Mental Status: 1 - Regular (Normal Baseline) Sepsis Risk:Possible Sepsis Risk Have you (or family members/close friends) recently traveled outside the [place]? N If Yes, where/when: Have you had exposure to infectious disease within the past month? N TB? Other? Specify: Source patient, RN notes reviewed, family, RN/MD Exam Limitations no limitations Comment This is a 36-year-old feel patient presented emergency room with RIGHT low back pain radiating down the RIGHT lower extremity since yesterday. Patient has had multiple previous similar complications in the past. She has a history of chronic low back pain. Patient denies any neurological deficits at this time, denies any fecal or urinary incontinence. ALLERGIES Coded Allergies: gabapentin (From NEURONTIN) (Mild, 12/01/16) bupropion (From WELLBUTRIN) (12/01/16) oxcarbazepine (From TRILEPTAL) (12/01/16) Home Medications Active Scripts Azithromycin (Zithromax) 250 MG PO DAILY #6 TAB Prov: 02/24/17 Reported Medications Lamotrigine (Lamictal 100Mg) 100 MG PO BID Meloxicam (Mobic 15MG) 15 MG PO BID Buspirone Hcl (Buspar 10MG) 10 MG PO DAILY DULOXETINE HCL (Cymbalta) 60 MG PO DAILY History Medical History General CAD? No Angina: No AK: No Hypertension? No Hyperlipidemia? No CHF? No DVT? No PE? No COPD? No Asthma? No Anemia? No GERD? No Gastric ulcers? No GI Bleed? No Hernia? No Thyroid Problems? No Hypothyroidism? No CVA? No Seizures? No Diabetes? No Renal Insuffiency? No End Stage Renal Disease? No UTI? No Stones? No GB Disease: No Nephritic Syndrome? No Asplenia? No Hepatitis? No Sickle Cell Disease? No Arthritis? No Migraines? No Cataracts? No Glaucoma? No MRSA? No HIV? No TB? No Anxiety? Yes Depression? No Cancer? No More? 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1 92 20 144/93 99 General Appearance normal appearance, WD/WN, mild distress Respiratory Status Yes: trachea midline, chest symmetrical, non tender chest. No: respiratory distress. Lung Sounds bilateral: normal breath sounds, lungs clear. 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 No Comment 2129 - upon reevaluation patient appears medically stable, clinically improving. Advised patient of results/findings, need for her to follow-up with PCP within 2 days if not better. Results/Orders Laboratory Tests 05/15/172124: Opiates Screen NEGATIVE, Urine Methadone Screen NEGATIVE, Barbiturates NEGATIVE, Phencyclidine Screen NEGATIVE, Amphetamines Screen NEGATIVE, Benzodiazepines Screen NEGATIVE, Cocaine Screen NEGATIVE, Marijuana (THC) Screen POSITIVE H, Urine Color YELLOW, Urine Appearance CLEAR, Urine pH 7.0, Ur Specific V[place] 1.010, Urine Protein NEGATIVE, Urine Ketones NEGATIVE, Urine Blood NEGATIVE, Urine Nitrate NEGATIVE, Urine Bilirubin NEGATIVE, Urine Urobilinogen 0.2, Ur Leukocyte Esterase TRACE H, Urine RBC NONE, Urine WBC 10-20, Ur Squamous Epith Cells 20-50, Urine Bacteria 4+, Urine Glucose NEGATIVE Current Medication Orders Sig/Manuel Start time Last Medication Dose Route Stop Time Status Admin Tramadol HCl 1 SEPIDEH ONCE ONE 05/15 2200 DC 05/15 PO 05/15 Tramadol HCl 0 .STK-MED ONE 05/15 2155 DC PO Methylprednisolone 0 .STK-MED ONE 05/15 2134 DC Acetate IM Ondansetron HCl 0 .STK-MED ONE 05/15 2132 DC .ROUTE Methylprednisolone 0 .STK-MED ONE 05/15 2131 DC Acetate IM Morphine Sulfate 0 .STK-MED ONE 05/15 2131 DC .ROUTE Methylprednisolone 80 MG ONCE ONE 05/15 2130 DC 05/15 Acetate IM 05/15 Morphine Sulfate 6 MG ONCE ONE 05/15 2130 DC 05/15 IM 05/15 Ondansetron HCl 4 MG ONCE ONE 05/15 2130 DC 05/15 IM 05/15 Orders Procedure Date/time Status CULTURE, URINE 05/15 2125 Active URINALYSIS/COMPLETE 05/15 2114 Complete DRUG ABUSE SCREEN (TRIAGE) 05/15 2114 Complete Departure Departure Time of Disposition 2146 Disposition DC Home or Self Care(routine) Clinical Impression Primary Impression: Sciatica Qualifiers: Laterality: right Qualified Code: M54.31 - Sciatica, right side Secondary Impressions: Chronic low back pain Qualifiers: Back pain laterality: right Sciatica presence: with sciatica Sciatica laterality: sciatica of right side Qualified Code: M54.41 - Lumbago with sciatica, right side Condition STABLE Referrals Nazario HURT,Cole Eldridge: 2 Days-Call Office Patient Instructions DI for Back Pain With Sciatica Additional Instructions Please take the pain medications prescribed as directed, follow-up with your family physician within 2 days if no better. Discharge Counseling Counseled pt/family regarding diagnosis, test results, medications/RX, home care, follow up needs Comment Please take the pain medications prescribed as directed, follow-up with your family physician within 2 days if no better. Prescriptions Current Visit Scripts Etodolac 200 MG PO QIDP PRN pain #30 CAP Cyclobenzaprine Hcl (Flexeril) 10 MG PO TID #30 TAB ED Critical Care Critical Care No at 2379
[2017-05-15 21:52] LABS: URINE SQUAMOUS CELLS 20-50 #/hpf (0-5)
[2017-05-15 22:01] VITALS: BP 123/75
== END 2017-05-15 22:04 | disposition home or self-care (01) ==
LOC: ER 20:25
PROVIDERS: Emergency Medicine
DX: M54.41 Lumbago with sciatica, right side (principal); F17.210 Nicotine dependence, cigarettes, uncomplicated; Z88.8 Allergy status to other drugs, medicaments and biological substances
CPT/HCPCS: J1030; J2405